=== PATIENT | female | born 1975 | race African-American/Black ===

== ENCOUNTER 2018-11-25 22:46 | Emergency (ER) | payer MEDICARE, MEDICAID ==
[~2018-11-25] VITALS: Ht 162.6 cm; Wt 98.0 kg
[2018-11-25] MEDS ORDERED: LIDOCAINE HCL/PF 1% 10 MG/ML 5ML VIAL IJ ONE (23:45)
[2018-11-25] MEDS ORDERED: HYDROCODONE/ACETAMINOPHEN 5/325MG TABLET PO ONE (23:45)
[2018-11-26 00:18] VITALS: BP 119/80
[2018-11-26] MEDS ORDERED: BACITRACIN ZINC OINT UDPKT TOP ONE (01:00)
== END 2018-11-26 02:00 | disposition home or self-care (01) ==
LOC: ER 22:46
DX: S01.81XA Laceration without foreign body of other part of head, initial encounter (principal); Y08.02XA Assault by strike by baseball bat, initial encounter; Y93.89 Activity, other specified; Y92.096 Garden or yard of other non-institutional residence as the place of occurrence of the external cause; I10 Essential (primary) hypertension; F12.90 Cannabis use, unspecified, uncomplicated; Z72.0 Tobacco use
CPT/HCPCS: 12011; 70450; 99284; J3490

== ENCOUNTER 2020-10-23 06:38 | Emergency (ER) | payer MEDICARE, MEDICAID ==
[~2020-10-23] VITALS: Ht 162.6 cm; Wt 65.0 kg
[2020-10-23 10:30] VITALS: BP 102/62
[2020-10-23] MEDS ORDERED: CEPH500T MT (11:02)
== END 2020-10-23 10:30 | disposition home or self-care (01) ==
LOC: ER 06:38
DX: M25.571 Pain in right ankle and joints of right foot (principal); F12.10 Cannabis abuse, uncomplicated; J45.909 Unspecified asthma, uncomplicated
CPT/HCPCS: 81025; 99282; 99283